=== PATIENT | male | born 1975 | race Caucasian/White ===

== ENCOUNTER 2017-02-20 07:23 | Emergency (ER) | payer OTHER, BC ==
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
--- NOTE | 2017-02-20 08:38 | CR ---
EXAMINATION: Left knee HISTORY: Pain COMPARISON: None TECHNIQUE: 3 views FINDINGS/IMPRESSION: There is no acute osseous abnormality, dislocation, or fracture. Bone mineraliza tion is normal. Joint spaces are preserved, no joint effusion.
--- NOTE | 2017-02-20 08:39 | CR ---
EXAMINATION: Right knee HISTORY: Pain COMPARISON: None TECHNIQUE: 3 views FINDINGS/IMPRESSION: There is no acute osseous abnormality, dislocation, or fracture. Joint spaces an d bone mineralization appear normal. No joint effusion.
== END 2017-02-20 08:56 | disposition home or self-care (01) ==
LOC: MW.ED 07:23
DX: T14.8XXA Other injury of unspecified body region, initial encounter (principal); F17.210 Nicotine dependence, cigarettes, uncomplicated; Z98.890 Other specified postprocedural states; V03.10XA Pedestrian on foot injured in collision with car, pick-up truck or van in traffic accident, initial encounter; Y92.410 Unspecified street and highway as the place of occurrence of the external cause
CPT/HCPCS: 73070-26-LT; 73070-26-RT; 73070-LT; 73070-RT; 73562-26-LT; 73562-26-RT; 73562-LT; 73562-RT; 99282; 99283